=== PATIENT | female | born 1970 | race Caucasian/White ===

== ENCOUNTER 2024-03-24 19:44 | Emergency (ER) | payer BC ==
[2024-03-24 20:24] LABS: HEMATOCRIT 34.5 % (37.0-47.0); HEMOGLOBIN 11.2 gm/dl (12.0-16.0); MEAN CORPUSCULAR HGB CONC 32.5 g/dl (32.0-36.0); MEAN CORPUSCULAR VOLUME 89.4 fl (83.0-99.0); MEAN PLATELET VOLUME 10.1 fl (9.4-12.3); PLATELET COUNT,PLT 191 K/mm3 (150-400); RED BLOOD CELL COUNT 3.86 M/mm3 (4.10-5.30); WHITE BLOOD CELL COUNT,WBC 11.13 K/mm3 (3.9-11.3)
[2024-03-24] MEDS: Sodium Chloride 0.9% 10 ML Syringe FLUSH PRN (20:33)
[2024-03-24] MEDS: Sodium Chloride 0.9% 1,000 ML IV STA (20:33)
[2024-03-24 20:43] LABS: INR 0.99; PROTHROMBIN TIME 10.5 SECONDS (9.7-12.0)
[2024-03-24 20:47] LABS: A/G RATIO 0.9 (1-2); ALBUMIN 3.2 g/dl (3.4-5.0); ANION GAP 13.8 (5-15); BILIRUBIN TOTAL 0.6 mg/dL (0.2-1.0); BUN/CREATININE RATIO 12.5 (14-18); C-REACTIVE PROTEIN 13.17 mg/dL (<0.30); CALCIUM 8.7 mg/dL (8.5-10.1); CREATININE 1.2 mg/dL (0.55-1.02); EST CRCL DRUG DOSING (CG) 43.82 mL/min; POTASSIUM,K 3.8 mEq/L (3.5-5.1); PROTEIN TOTAL,TP 6.7 g/dl (6.4-8.2)
[2024-03-24 20:49] LABS: LACTIC ACID 0.6 mmol/L (0.4-2.0)
[2024-03-24 20:49] LABS: APPEARANCE,URINE CLEAR (Clear); BILIRUBIN,URINE NEGATIVE (Negative); COLOR,URINE YELLOW (Yellow); GLUCOSE,URINE NEGATIVE (Negative); KETONES,URINE 1+ (Negative); LEUKOCYTE ESTERASE,URINE 1+ (Negative); NITRITE,URINE NEGATIVE (Negative); OCCULT BLOOD,URINE TRACE-LYSED (Negative); PROTEIN,URINE TRACE (Negative); UROBILINOGEN,URINE 0.2 (0.2-1.0)
[2024-03-24 21:03] LABS: RBC,URINE 0-5 /hpf (0-5); SQUAMOUS EPITHELIAL CELLS,UR 0-5 /hpf (0-5); WBC,URINE 50-75 /hpf (0-5)
[2024-03-24 21:04] LABS: BACTERIA,URINE FEW /hpf (FEW); MUCUS,URINE RARE /hpf (FEW); WBC CLUMPS,URINE RARE /hpf (NOT SEEN)
[2024-03-24 21:07] LABS: BAND PERCENT MAN 0 % (0-10); BASOPHILS PERCENT MAN 0 (0.1-1.2); EOSINOPHILS PERCENT MAN 0 % (0.7-5.8); LYMPHOCYTES % ATYPICAL MANUAL 0 %; LYMPHOCYTES PERCENT MAN 6 % (20-40); MONOCYTES PERCENT MAN 11 % (2-10); PLATELET COUNT ESTIMATE ADEQUATE
[2024-03-24] MEDS: cefTRIAXone 2 GM in Sodium Chloride 0.9% 100 ML IV ONE (21:56)
[2024-03-24] MEDS: HYDROmorphone 0.5 MG/0.5 ML Syringe IVPUSH ONE (21:58)
== END 2024-03-24 22:48 ==
LOC: JD.ED 19:44
DX: R50.9 Fever, unspecified (principal); N13.2 Hydronephrosis with renal and ureteral calculous obstruction; N39.0 Urinary tract infection, site not specified; Z88.2 Allergy status to sulfonamides; Z88.8 Allergy status to other drugs, medicaments and biological substances
CPT/HCPCS: 36415; 74176; 80053; 81001; 83605; 85007; 85027; 85610; 86140; 87040; 96361; 96365; 96375; 99285; J0696; J1170; J3490; J7030